=== PATIENT | male | born 1985 | race Caucasian/White ===

== ENCOUNTER 2021-03-02 15:19 | Emergency (ER) | payer SELFPAY ==
[2021-03-02 15:29] VITALS: BP 153/84; PULSE 83; TEMP 98.2; BMI 43.4
[2021-03-02] MEDS ORDERED: SODIUM CHLORIDE 0.9% 1000 ML INFUS.BAG IV ONE (16:19)
[2021-03-02 18:14] LABS: BASO % 0.3 % (0-2.0); EOS % 0.3 % (0-4.5); HEMATOCRIT 37.6 % (35.4-49); HEMOGLOBIN 12.3 GM/dl (11.7-16.9); LYMPH % 4.8 % (8-40); MCHC 32.7 g/dl (32.0-35.9); MEAN CELL VOLUME 76.5 fl (80-96); MEAN PLT VOLUME 7.9 fl (7.5-11.1); MONO % 7.1 % (3.8-10.2); NEUT % 87.5 % (42.8-82.8); PLATELET COUNT 489 10^3/uL (134-434); RBC 4.92 M/mm3 (4.00-5.60); RDW 14.1 % (11.9-15.9); WHITE BLOOD COUNT 15.1 K/mm3 (4.0-10.8)
[2021-03-02 18:23] LABS: ALBUMIN 3.2 g/dl (3.4-5.0); CALCIUM 8.9 mg/dl (8.5-10); TOT PROT 7.5 g/dl (6.4-8.2)
[2021-03-02] MEDS ORDERED: POTASSIUM CHLORIDE TABS 20 MEQ TABLET.ER (FP) PO ONE ×2 (19:13→19:17)
== END 2021-03-02 22:06 | disposition left against medical advice (07) ==
LOC: FER 15:19
DX: R10.30 Lower abdominal pain, unspecified (principal); K59.00 Constipation, unspecified
CPT/HCPCS: 36415; 74177-TC; 80053; 83605; 83690; 85025; 99285-25; Q9967